=== PATIENT | female | born 1985 | race Caucasian/White ===

== ENCOUNTER → 2019-11-10 | Day surgery (SDC) | payer MEDICARE, OTHER ==
[2019-11-06 14:20] VITALS: BMI 23.3
[~2019-11-10] MED LIST: LACTATED RINGERS 1,000 ML IV SCH; LIDOCAINE 1% 20 ML VIAL (10MG/ML) FOR IV START INTRADERMA PRN; LIDOCAINE 1% INJ 10MG/ML (20 ML MDV) ONE; PROPOFOL 10 MG/ML 20 ML VIAL IV ONE
[2019-11-10 08:24] VITALS: TEMP 97.6
[2019-11-10 09:05] VITALS: RESP 16
--- NOTE | 2019-11-10 09:10 | P.PCN ---
Date of Procedure: 11/10/19 Description of Procedure: BRIEF HISTORY: Patient is a 33-year-old female with complaints of chronic abdominal pain, bloatedness and discomfort with history of GERD on daily PPI therapy who presents for outpatient esophagogastroduodenoscopy for further evaluation. PROCEDURE PERFORMED: Esophagogastroduodenoscopy with biopsy. PREOPERATIVE DIAGNOSIS: GERD, bloatedness, eructation. ESTIMATED BLOOD LOSS: Minimal. IV sedation per anesthesia. PROCEDURE: After informed consent was obtained, the patient was brought into the endoscopy unit. IV sedation was administered by Anesthesia under continuous monitoring. Initially the Olympus GIF-190 video endoscope was inserted into the mouth. Eso phagus intubated without any difficulty. It was gradually advanced into the stomach and duodenum and carefully examined. The bulb and the second part of the duodenum appeared normal, with biopsies taken to rule out celiac sprue. The scope at this time was withdrawn to the stomach, adequately insufflated with air, and upon careful examination, mucosa of the antrum, body, cardia and the fundus appeared normal, except for some mild punctate erythema in the antrum and body suggestive of mild gastritis with biopsies taken. The scope was then withdrawn into the esophagus. The GE junction was located at 39 cm from the incisors with 1 cm hiatal hernia noted . The esophagus appeared normal, With a somewhat irregular Z line which was biopsied. There were no erosions or ulcerations seen and the patient tolerated the procedure well. IMPRESSION: 1. Mild gastritis antrum and body, biopsied . 2. Biopsies of the duodenum and the distal esophagus at the Z line. 3. Small hiatal hernia. RECOMMENDATIONS: The findings of this examination were discussed with the patient and her friend. Okay to resume diet. Okay to continue medications. Await pathology from biopsies. Follow up in gastroenterology as previously scheduled.
[2019-11-10 09:20] VITALS: BP 109/71; PULSE 59
== END ==
LOC: ORWHC2ENDO 07:33
PROVIDERS: ATTEND Internal Medicine
DX: K29.50 Unspecified chronic gastritis without bleeding (principal); K21.9 Gastro-esophageal reflux disease without esophagitis; K44.9 Diaphragmatic hernia without obstruction or gangrene; Z79.899 Other long term (current) drug therapy; Z98.890 Other specified postprocedural states; Z85.841 Personal history of malignant neoplasm of brain
CPT/HCPCS: 81025; 88305; 43239; J2001; J2704